=== PATIENT | male | born 1965 ===

== ENCOUNTER 2017-04-27 17:24 | Emergency (ER) | payer MEDICARE, OTHER ==
[~2017-04-27] VITALS: Ht 165.1 cm; Wt 101.0 kg
[2017-04-27 17:28] VITALS: BP 149/81
[2017-04-27] MEDS ORDERED: polymyxin B sulf/tmp ophth drops 10ml LEFTEYE ONE (18:09)
[2017-04-27] MEDS ORDERED: polymyxin B sulf/tmp ophth drops 10ml LEFTEYE SCH (21:00)
== END 2017-04-27 18:25 | disposition home or self-care (01) ==
LOC: ER 17:25
DX: H10.9 Unspecified conjunctivitis (principal); Z88.0 Allergy status to penicillin
CPT/HCPCS: 99282

== ENCOUNTER 2021-05-22 09:20 | Emergency (ER) | payer MEDICARE, OTHER ==
[~2021-05-22] VITALS: Ht 154.9 cm; Wt 100.0 kg
[2021-05-22] MEDS ORDERED: normal saline 1000ML IV soln IVB ONE (09:40)
[2021-05-22 10:36] LABS: BASOPHILS # (AUTO) 0.1 X10'3 (0-0.2); BASOPHILS % (AUTO) 0.5 % (0-1); EOSINOPHILS % (AUTO) 0.2 % (0-6); HEMATOCRIT 45.9 % (42.0-52.0); HEMOGLOBIN 15.4 g/dl (14.0-17.9); LYMPHOCYTES # (AUTO) 1.8 X10'3 (1.1-4.8); LYMPHOCYTES % (AUTO) 8.8 % (21-51); MEAN CORPUSCULAR HEMOGLOBIN 31.8 PG (27.0-31.0); MEAN CORPUSCULAR HGB CONC 33.7 g/dL (33.0-36.5); MEAN CORPUSCULAR VOLUME 94.3 FL (78-98); MEAN PLATELET VOLUME 7.4 FL (7.4-10.4); MONOCYTES # (AUTO) 1.6 X10'3 (0-0.9); MONOCYTES % (AUTO) 7.9 % (2-12); NEUTROPHILS # (AUTO) 16.5 X10'3 (1.8-7.7); NEUTROPHILS % (AUTO) 82.6 % (42-75); PLATELET COUNT 330 X10'3 (140-440); RED BLOOD COUNT 4.87 X10'6 (4.70-6.10); RED CELL DISTRIBUTION WIDTH 14.1 % (11.5-14.5)
[2021-05-22 10:46] LABS: ALANINE AMINOTRANSFERASE 20 U/L (12-78); ALBUMIN 3.5 G/DL (3.4-5.0); ALBUMIN/GLOBULIN RATIO 0.7 (1.1-1.5); ALKALINE PHOSPHATASE 76 IU/L (46-116); ANION GAP 10 (8-16); ASPARTATE AMINO TRANSFERASE 17 U/L (10-37); BILIRUBIN,TOTAL 0.5 MG/DL (0.1-1.0); BLOOD UREA NITROGEN 7 MG/DL (7-18); BUN/CREATININE RATIO 11.1 (5.4-32.0); CALCIUM 8.5 MG/DL (8.5-10.1); CHLORIDE 105 MMOL/L (99-107); CREATININE 0.63 MG/DL (0.60-1.10); GLUCOSE 137 MG/DL (70-104); POTASSIUM 4.1 MMOL/L (3.5-5.1); SODIUM 137 MMOL/L (135-145); TOTAL PROTEIN 8.3 G/DL (6.4-8.2); eGFR > 90 ML/MIN
[2021-05-22] MEDS ORDERED: iohexol 300mg/ml 100ml inj. ONE (11:09)
[2021-05-22] MEDS ORDERED: clindamycin 600mg/D5W 50ml 50 ML IV ONE (11:30)
[2021-05-22] MEDS ORDERED: CLIN-97 PO (14:29)
[2021-05-22 14:52] VITALS: BP 133/80
== END 2021-05-22 16:52 | disposition left against medical advice (07) ==
LOC: ER 09:20
DX: L02.01 Cutaneous abscess of face (principal); K02.9 Dental caries, unspecified; F17.200 Nicotine dependence, unspecified, uncomplicated; F12.90 Cannabis use, unspecified, uncomplicated; Z88.0 Allergy status to penicillin
CPT/HCPCS: 36415; 70491; 80053; 85025; 96365; 99285; J3490; J7030; Q9967